=== PATIENT | female | born 1945 | race Caucasian/White ===

== ENCOUNTER → 2017-03-06 | Outpatient (CLI) | payer MEDICARE ==
--- NOTE | ~2017-03-06 | MY29 ---
[facility] A Service of [facility] RADIOLOGY TEXT RESULTS PATIENT: KENNEDY RUIZ LOCATION: [facility] : 43 UNIT #: [id number] AGE: [address]: CHARLES BACH MD SEX: F ORDER DR: [id number] [place], [place] [address] [id number] O MR#: [id number] Acc #: [id number] NAME: KENNEDY RUIZ : 1945 SEX: F STUDY DATE/TIME: 03/06/2017 10:22 UNIT: [facility] ROOM: STUDY DESCRIPTION: MY MELVIN SCREENING W/ CAD BILAT Attending Physician: Charles Bach M.D. Referring Physician: Charles Bach M.D. Ordering Physician: Charles Bach M.D. Primary Care Physician: Charles Bach M.D. MEDICAL IMAGING REPORT This report is preliminary unless electronic signature is present EXAM Bilateral digital screening mammogram with CAD COMPARISON January 29, 2016, 01/10/2015, and November 03, 2012. INDICATION Breast cancer screening. 71-year-old female who reports a daughter with premenopausal breast cancer. The patient reports prior benign bilateral excisional biopsy of the breast. FINDINGS There are scattered fibroglandular densities. There are no suspicious findings in the right breast. In middle third of the superior left breast there is an 8-mm asymmetry only seen on MLO view and also seen on MLO view in the inferior anterior third there is a 12-mm asymmetry which appears to be developing. IMPRESSION 1. No mammographic evidence of malignancy in the right breast. 2. Left breast asymmetries only seen on MLO view. Further evaluation with spot compression MLO view as well as full field ML view is recommend, possibly followed by left breast ultrasound. Patients over the age of 40 are entered into a reminder system with target due date for the next mammogram. A result letter will also be sent to the patient. BIRADS: 0 - Need additional imaging evaluation and/or prior mammograms for comparison [facility] A Service [facility] RADIOLOGY TEXT RESULTS PATIENT: KENNEDY RUIZ LOCATION: [facility] : 43 UNIT #: [id number] AGE: [address]: CHARLES BACH MD SEX: F ORDER DR: Dictated by... Kt Vigil M.D. THIS IS AN ELECTRONICALLY VERIFIED REPORT Kt Vigil M.D. at 03/09/2017 10:19 PM Jonnie TD: 03/06/2017 17:43 JOB #: [id number] MEDICAL IMAGING REPORT Page 1 of 1 COPY
== END | disposition home or self-care (01) ==
LOC: CWCC 09:54
DX: Z12.31 Encounter for screening mammogram for malignant neoplasm of breast (principal); Z80.3 Family history of malignant neoplasm of breast; N64.89 Other specified disorders of breast
CPT/HCPCS: G0202

== ENCOUNTER → 2017-04-16 | Outpatient (CLI) | payer MEDICARE ==
--- NOTE | ~2017-04-16 | US24 ---
[facility] A Service of [facility] RADIOLOGY TEXT RESULTS PATIENT: KENNEDY RUIZ LOCATION: [facility] : 43 UNIT #: [id number] AGE: [address]: CHARLES BACH MD SEX: F ORDER DR: [id number] [facility] [address] [place], [place] [address] [id number] O MR#: [id number] Acc #: [id number] NAME: KENNEDY RUIZ : 1945 SEX: F STUDY DATE/TIME: 04/16/2017 13:28 UNIT: [facility] ROOM: STUDY DESCRIPTION: US Breast Unilateral Attending Physician: Charles Bach M.D. Referring Physician: Charles Bach M.D. Ordering Physician: Charles Bach M.D. Primary Care Physician: Charles Bach M.D. MEDICAL IMAGING REPORT This report is preliminary unless electronic signature is present EXAM Whole breast ultrasound on the left, 04/16/2017 FINDINGS Please see the additional views left breast same day report for this dictation. Patients over the age of 40 are entered into a reminder system with target due date for the next mammogram. A result letter will also be sent to the patient. BIRADS: 3. Probably benign finding; short interval followup suggested. Dictated by... Doron Brown M.D. THIS IS AN ELECTRONICALLY VERIFIED REPORT Doron Brown M.D. at 04/17/2017 5:26 PM LASHELL/maribeth TD: 04/16/2017 14:59 JOB #: [id number] MEDICAL IMAGING REPORT Page 1 of 1 COPY
--- NOTE | ~2017-04-16 | MY24 ---
[facility] A Service of [facility] RADIOLOGY TEXT RESULTS PATIENT: KENNEDY RUIZ LOCATION: [facility] : 41 UNIT #: [id number] AGE: [address]: CHARLES BACH MD SEX: F ORDER DR: [id number] [facility] [address] [place], [place] [address] [id number] O MR#: [id number] Acc #: [id number] NAME: KENNEDY RUIZ : 1945 SEX: F STUDY DATE/TIME: 04/16/2017 13:21 UNIT: [facility] ROOM: STUDY DESCRIPTION: MY MELVIN MARY W/ CAD UNI LT Attending Physician: Charles Bach M.D. Referring Physician: Charles Bach M.D. Ordering Physician: Charles Bach M.D. Primary Care Physician: Charles Bach M.D. MEDICAL IMAGING REPORT This report is preliminary unless electronic signature is present EXAM Additional views of the left breast and whole breast ultrasound on the left 04/16/2017 INDICATIONS 72-year-old female recalled for asymmetries in the left breast on a recent screening mammogram performed 03/06/2017 TECHNIQUE True lateral and compression MLO views of the left breast were obtained and reviewed with an FDA-approved CAD device COMPARISON 03/06/2017 01/29/2016 12/21/2014 11/03/2012. FINDINGS MAMMOGRAPHIC FINDINGS The asymmetries in the upper and lower hemisphere left breast become less conspicuous on the spot compression views and are favored to represent summation artifacts. The upper hemisphere asymmetry does persist on the true lateral view. However, there has always been an area of fibroglandular prominence in the upper hemisphere left breast on the prior studies. Ultrasound of the entire left breast was thereafter performed for further assessment. ULTRASOUND FINDINGS LEFT BREAST: The patient was initially scanned independently by the technologist and then rescanned in my presence. In the 12 o'clock position left breast, there is a probably benign complicated cyst measuring about 5 mm. No internal color-flow. It warrants followup in 6 months to document stability. There is no distinct mammographic correlate. In the 1 o'clock position left breast there is a second probably benign complicated cyst measuring about 5 x 5 mm as well. No STS. [facility] A Service of [facility] & [facility] RADIOLOGY TEXT RESULTS PATIENT: KENNEDY RUIZ LOCATION: [facility] : 41 UNIT #: [id number] AGE: [address]: CHARLES BACH MD SEX: F ORDER DR: internal color-flow. No distinct mammographic correlate. In the 6 o'clock position of the left breast there is a benign cyst measuring about 6 x 4 mm. There is no mammographic correlate but this is a benign lesion on ultrasound and requires no additional follow up. Imaging of the remainder of the left breast was performed in a circumferential fashion and appears negative. Suggest 6-month followup imaging of the left breast with mammography and ultrasound to document expected stability of probably benign findings on both modalities with attention to the 12 and 1 o'clock positions on ultrasound and to the upper hemisphere left breast mammographically. Findings and recommendations were discussed with the patient here in the department and she voiced understanding and agreement. IMPRESSION 1. Additional views of the left breast demonstrate that the asymmetries appear less conspicuous with the benefit of additional views and are probably benign and represent summation artifact. 6-month followup imaging is however recommended to document stability of the asymmetry in the upper hemisphere left breast. There was no ultrasound correlate. 2. Probably benign complicated cyst at 12 and 1 o'clock in the left breast warranting 6 month followup ultrasound to reassess for stability. 3. Incidental benign cyst in the 6 o'clock position left breast. Patients over the age of 40 are entered into a reminder system with target due date for the next mammogram. A result letter will also be sent to the patient. BIRADS: 3. Probably benign finding; short interval followup suggested Dictated by... Doron Brown M.D. THIS IS AN ELECTRONICALLY VERIFIED REPORT Doron Brown M.D. at 04/17/2017 5:26 PM LASHELL/maribeth TD: 04/16/2017 14:39 JOB #: [id number] MEDICAL IMAGING REPORT Page 1 of 1 COPY
== END | disposition home or self-care (01) ==
LOC: CMAM 03-26 08:00
DX: R92.8 Other abnormal and inconclusive findings on diagnostic imaging of breast (principal); N64.89 Other specified disorders of breast
CPT/HCPCS: 76641; G0206